=== PATIENT | male | born 1950 ===

== ENCOUNTER 2017-12-01 10:01 | Day surgery (SDC) | payer MEDICARE, MEDICAID ==
[2017-12-01] MEDS ORDERED: Lactated Ringer's 500 ML IV ONE (12:28)
[2017-12-01] MEDS ORDERED: Propofol 10 mg/ml Inj (20 ML) ONE ×2 (12:30)
[2017-12-01 14:22] VITALS: BP 135/85; PULSE 65; RESP 15; TEMP 98.2; O2SAT 99
== END 2017-12-01 14:20 | disposition home or self-care (01) ==
LOC: C.ENDO 10:01
PROVIDERS: ATTEND Internal Medicine Gastroenterology
DX: K64.1 Second degree hemorrhoids (principal)
CPT/HCPCS: 45378; J2704; J7120